=== PATIENT | female | born 1935 | race Caucasian/White ===

== ENCOUNTER 2018-12-26 14:43 | Observation (INO) ==
[2018-12-26 16:12] LABS: Basophils # 0.1 K/mcL (0.0-0.2); Basophils % 0.4 %; Eosinophils # 0.1 K/mcL (0.0-0.6); Eosinophils % 0.7 %; Hematocrit 40.7 % (35.3-44.9); Hemoglobin 12.8 g/dL (11.5-15.4); INR 1.1; Immature Granulocytes % 1.2 % (0-4); Lymphocytes # 2.3 K/mcL (0.6-4.6); Lymphocytes % 18.3 %; Mean Corpuscular HGB Conc 31.4 g/dL (31.6-35.5); Mean Corpuscular Hemoglobin 32.2 pg (28.0-33.3); Mean Corpuscular Volume 102.3 fL (83.0-100.0); Mean Platelet Volume 10.8 fL (9.4-12.4); Monocytes # 1.1 K/mcL (0.0-1.3); Neutrophils # 8.8 K/mcL (1.6-8.9); Platelet Count 264 K/mcL (140-400); Prothrombin Time 12.9 Seconds (9.4-12.1); Red Blood Count 3.98 M/mcL (3.82-4.97); Red Cell Distribution Width 13.7 % (11.5-14.5); Segmented Neutrophils % 70.4 %
[2018-12-26 16:14] LABS: Activated Partial Thrombo Time 31.5 Seconds (26.0-36.0); Troponin I 0.05 ng/mL (< 0.04)
[2018-12-26] MEDS ORDERED: 0.9 % Sodium Chloride 250 ML IVC ONE (16:34)
[2018-12-26 16:40] LABS: Albumin 3.2 g/dL (3.5-5.7); Albumin/Globulin Ratio 0.9 (1.1-2.2); Bilirubin,Total 0.4 mg/dL (0.3-1.0); Calcium 9.1 mg/dL (8.6-10.3); Globulin 3.4 g/dL (2.4-3.5); Potassium 4.2 mEq/L (3.5-5.1); Total Protein 6.6 g/dL (6.4-8.9)
[2018-12-26 16:45] LABS: Bilirubin,Urine Small (Negative); Blood,Urine Small (Negative); Clarity,Urine Clear (Clear); Color,Urine Yellow (Yellow); Glucose,Urine (UA) Normal (Normal); Ketones,Urine Negative (Negative); Leukocyte Esterase,Urine Large (Negative); Nitrite,Urine Positive (Negative); Protein,Urine 30 mg/dL (Neg-Trace); Urobilinogen,Urine Normal (Normal)
[2018-12-26] MEDS ORDERED: 0.9 % Sodium Chloride 1,000 ML IVC SCH ×2 (16:45→19:48)
--- NOTE | 2018-12-26 16:54 | Emergency Department Note ---
Disposition Clinical Impression: Delirium due to general medical condition UTI (urinary tract infection) Qualifiers: Urinary tract infection type: site unspecified Hematuria presence: without hematuria Qualified Code(s): N39.0 - Urinary tract infection, site not specified Altered mental status Qualifiers: Altered mental status type: somnolence Qualified Code(s): R40.0 - Somnolence Disposition: Admitted As Inpatient Referrals: NONE,PCP [Primary Care Provider] - Forms: ED Satisfaction Letter Time of Disposition: 18:09 Altered Mental Status HPI - General Chief Complaint: ED Altered Mental Status Stated Complaint: possible stroke Time Seen by Provider: 12/26/18 14:53 Source: family, EMS Mode of arrival: EMS Limitations: altered mental status, age Nursing Notes Reviewed: Yes Vital Signs Reviewed: Yes - History of Present Illness HPI Narrative: Patient is an elderly diabetic with dementia cared for at home by her son who indicates that she also has chronic UTIs, bladder stones, several urologic procedures by Dr. Lenz urology, and his for the last 3 months been on Cipro for preventative chronic UTIs. Centers for her at home. He states that she does have severe dementia but usually is verbal. She over the last month and a half has been having increasing weakness and inability to walk. He needs to carry her to the bathroom and back as her legs well just "go out on her" she occasionally gets agitated and requires lorazepam. She has been "fighting" for the last week and that her own right arm. He states that she is always a bit groggy. Last lorazepam was last night. Dosing is usually 3 times a day. Patient this morning however was unusually nonverbal. He could not get her to wake up or open her eyes. She was more weak than usual. Seemed altered. And he was concerned. He also thought she may have a bit more chest and nasal congestion than usual MD complaint: altered mental status, confusion, decreased responsiveness, we akness Onset (ago): hour(s) (6) Timing confirmed by: family member, caregiver Pain Severity: unable Consistency of Symptoms: constant Context: history psychiatric disease, other (dementia) Associated symptoms: Reports: other (pt nonverbal) Treatments prior to arrival: other (none) - Related Data Home Medications Medication Instructions Recorded Confirmed FLUoxetine HCl [Prozac] 40 mg PO DAILY 10/27/15 12/26/18 Lisinopril [Zestril] 5 mg PO DAILY 10/27/15 12/26/18 Pantoprazole Sodium [Protonix] 40 mg PO DAILY 10/27/15 12/26/18 Mirtazapine [Remeron] 7.5 mg PO HS 04/25/16 12/26/18 Levothyroxine [Synthroid] 88 mcg PO 0630 06/26/17 12/26/18 hydroCHLOROthiazide 12.5 mg PO DAILY 06/26/17 12/26/18 [Hydrochlorothiazide] Insulin Glargine,Hum.rec.anlog 30 unit SQ HS 07/20/17 12/26/18 [Lantus Solostar] Aspirin [Lo-Dose Aspirin EC] 81 mg PO DAILY 08/07/17 12/26/18 Clopidogrel [Plavix] 75 mg PO DAILY 08/07/17 12/26/18 predniSONE [PredniSONE] 3 mg PO DAILY 08/07/17 12/26/18 Ciprofloxacin HCl [Cipro] 250 mg PO DAILY 12/26/18 12/26/18 Dulaglutide [Trulicity] 1.5 mg SQ QWEEK 12/26/18 12/26/18 Gabapentin [Neurontin] 300 mg PO TID 12/26/18 12/26/18 rOPINIRole [Requip] 0.5 mg PO HS 12/26/18 12/26/18 Allergies Allergy/AdvReac Type Severity Reaction Status Date / Time No Known Allergies Allergy Verified 08/18/17 21:21 Limitations: ROS unobtainable due to patients medical condition Past Medical History - Past Medical History Medical history: Reports: CHF, CVA, dementia, diabetes, GERD, hyperlipidemia, hypertension, kidney stones, RA, thyroid disease, other Surgical history: Reports: cataract, cholecystectomy Psychiatric history: Reports: no psych history [employer]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 Skin color is pale. Appears well h ydrated, body habitus elderly and frail appears chronically ill Non toxic appearing. Head: Normocephalic and atraumatic. External ear exam normal Nose: Nose normal. Mouth/Throat: Uvula is midline, oropharynx is clear and moist and mucous membranes are normal. Eyes: Conjunctivae nl, extraocular motions and lids are normal. Pupils are equal, round, and reactive to light. Neck: Normal range of motion and phonation normal. Neck supple. No JVD Cardiovascular: Normal rate, regular rhythm, normal heart sounds. Pulmonary/Chest: No Respiratory distress. Respiratory Effort normal and breath sounds clear. Abdominal: Soft. Normal appearance and bowel sounds are normal. no tenderness, no masses, no guarding, no rebound External genitals without obvious rash, bleeding, or any signs of trauma. No discharge Musculoskeletal: Good distal pulses. Soft compartments. Brisk cap refill. Extremities: Difficult to assess motor function is the patient is nonverbal and will not open her eyes or cooperate with motor exam..Intact peripheral pulses. No Edema. Extremity skin color nl, no calf tenderness or palpable cords. Neurological: GCS 8. Patient is nonverbal. Skin: Skin is warm, dry and intact. color is normal, cap refill is quick Psychiatric: Patient nonverbal - General Limitations: no limitations General appearance: alert, in no apparent distress Course - Reevaluation(s) Reevaluation #1: Patient had urine straight cathetered for specimen and specimen was very cloudy. Possible UTI. Cultures and lactate ordered and antibiotics and IV fluids Time: 16:39 Reevaluation #2: I discussed the patient's care and testing results radiology imaging with the son who is the xerox machine mechanic. I do believe she has the altered mental status as a result of her urinary tract infection. She will need further antibiotics. But he is concerned because she has not had anything to eat or drink all day and she has been sleeping and not able to take by mouth that he will not be able to manage her at home. I did have rectal temp done and she is not febrile when we tried to have her take by mouth however she was unable to, swallow much of the time. She will be unable to take even oral fluids as an outpatient and therefore will require hospitalization. Her son is in agreement. He indicates that her CODE STATUS is DNR CC Time: 18:04 Reevaluation #3: Call back from Dr. Buckley electronic assembler group leader for hospitalist. He agreed that she can be admitted here and requested that I put in orders as a courtesy. We discussed antibiotic choice and he would like to continue with the Rocephin daily. He asked me to put her on heparin 5000 units twice a day subcutaneous and IV fluids were also discussed. Time: 18:28 Vital Signs Temperature 98.3 F 12/26/18 14:54 Pulse Rate 91 12/26/18 14:54 Respiratory Rate 14 12/26/18 14:54 Blood Pressure 118/75 12/26/18 14:54 O2 Sat by Pulse Oximetry 100 12/26/18 14:54 Temperature 99.1 F 12/26/18 16:57 Pulse Rate 83 12/26/18 17:52 Respiratory Rate 14 12/26/18 17:52 Blood Pressure 130/62 12/26/18 17:52 O2 Sat by Pulse Oximetry 98 12/26/18 17:52 Oxygen Delivery Oxygen Delivery Nasal Cannula Altered Mental Status - Differential Diagnosis Likely: altered mental status, delirium, dementia, hypoglycemia, hyponatremia, psychiatric disease, subarachnoid hemorrhage - Medical Records Medical records reviewed: Yes I reviewed the patient's medical records. - Lab Data Lab results reviewed: Yes I reviewed the patient's lab results. Result diagrams: 12/26/18 15:43 12/26/18 16:05 Lab Results 12/26/18 12/26/18 12/26/18 Range/Units 15:43 15:43 15:43 WBC 12.5 H (4.3-11.1) K/mcL RBC 3.98 (3.82-4.97) M/mcL Hgb 12.8 (11.5-15.4) g/dL Hct 40.7 (35.3-44.9) % MCV 102.3 H (83.0-100.0) fL MCH 32.2 (28.0-33.3) pg MCHC 31.4 L (31.6-35.5) g/dL RDW 13.7 (11.5-14.5) % Plt Count 264 (140-400) K/mcL MPV 10.8 (9.4-12.4) fL Immature Gran % 1.2 (0-4) % Seg Neutrophils % 70.4 % Lymphocytes % 18.3 % Monocytes % 9.0 % Eosinophils % 0.7 % Basophils % 0.4 % Neutrophils # 8.8 (1.6-8.9) K/mcL Lymphocytes # 2.3 (0.6-4.6) K/mcL Monocytes # 1.1 (0.0-1.3) K/mcL Eosinophils # 0.1 (0.0-0.6) K/mcL Basophils # 0.1 (0.0-0.2) K/mcL PT 12.9 H (9.4-12.1) Seconds INR 1.1 APTT 31.5 (26.0-36.0) Seconds VBG pH (7.32-7.42) pH Units VBG pCO2 (41-51) mmHg VBG pO2 (25-50) mmHg VBG HCO3 (21-27) mEq/L Sodium (136-145) mEq/L Potassium (3.5-5.1) mEq/L Chloride (98-107) mEq/L Carbon Dioxide (23-29) mEq/L BUN (8-23) mg/dL Creatinine (0.60-1.20) mg/dL Est GFR ( Amer) (> 60) Est GFR (Non-Af Amer) (> 60) BUN/Creatinine Ratio (6-26) Glucose (70-105) mg/dL Calculated Osmolality (280-300) Lactic Acid 1.4 (0.5-2.2) mmol/L Calcium (8.6-10.3) mg/dL Total Bilirubin (0.3-1.0) mg/dL AST (13-39) Units/L ALT (7-52) Units/L Alkaline Phosphatase (34-104) Units/L Creatine Kinase (30-223) Units/L Troponin I (< 0.04) ng/mL Serum Total Protein (6.4-8.9) g/dL Albumin (3.5-5.7) g/dL Globulin (2.4-3.5) g/dL Albumin/Globulin Ratio (1.1-2.2) Serum , Qual (Negative) Urine Color (Yellow) Urine Clarity (Clear) Urine pH (5.0-8.0) pH Units Ur Specific Olive (1.010-1.025) Urine Protein (Neg-Trace) mg/dL Urine Glucose (UA) (Normal) mg/dL Urine Ketones (Negative) mg/dL Urine Blood (Negative) Urine Nitrite (Negative) Urine Bilirubin (Negative) Urine Urobilinogen (Normal) mg/dL Ur Leukocyte Esterase (Negative) Urine Microscopic RBC (0-3) per hpf Urine Microscopic WBC (0-3) per hpf Ur Squamous Epith Cells (None-Few) per lpf Urine Bacteria (None-Few) per hpf 12/26/18 12/26/18 12/26/18 Range/Units 15:43 15:43 16:05 WBC (4.3-11.1) K/mcL RBC (3.82-4.97) M/mcL Hgb (11.5-15.4) g/dL Hct (35.3-44.9) % MCV (83.0-100.0) fL MCH (28.0-33.3) pg MCHC (31.6-35.5) g/dL RDW (11.5-14.5) % Plt Count (140-400) K/mcL MPV (9.4-12.4) fL Immature Gran % (0-4) % Seg Neutrophils % % Lymphocytes % % Monocytes % % Eosinophils % % Basophils % % Neutrophils # (1.6-8.9) K/mcL Lymphocytes # (0.6-4.6) K/mcL Monocytes # (0.0-1.3) K/mcL Eosinophils # (0.0-0.6) K/mcL Basophils # (0.0-0.2) K/mcL PT (9.4-12.1) Seconds INR APTT (26.0-36.0) Seconds VBG pH (7.32-7.42) pH Units VBG pCO2 (41-51) mmHg VBG pO2 (25-50) mmHg VBG HCO3 (21-27) mEq/L Sodium 144 (136-145) mEq/L Potassium 4.2 (3.5-5.1) mEq/L Chloride 111 H (98-107) mEq/L Carbon Dioxide 24 (23-29) mEq/L BUN 47 H (8-23) mg/dL Creatinine 2.07 H (0.60-1.20) mg/dL Est GFR ( Amer) 28 L (> 60) Est GFR (Non-Af Amer) 23 L (> 60) BUN/Creatinine Ratio 23 (6-26) Glucose 225 H (70-105) mg/dL Calculated Osmolality 317 H (280-300) Lactic Acid (0.5-2.2) mmol/L Calcium 9.1 (8.6-10.3) mg/dL Total Bilirubin 0.4 (0.3-1.0) mg/dL AST 24 (13-39) Units/L ALT 15 (7-52) Units/L Alkaline Phosphatase 120 H (34-104) Units/L Creatine Kinase 709 H (30-223) Units/L Troponin I 0.05 H* (< 0.04) ng/mL Serum Total Protein 6.6 (6.4-8.9) g/dL Albumin 3.2 L (3.5-5.7) g/dL Globulin 3.4 (2.4-3.5) g/dL Albumin/Globulin Ratio 0.9 L (1.1-2.2) Serum , Qual Negative (Negative) Urine Color (Yellow) Urine Clarity (Clear) Urine pH (5.0-8.0) pH Units Ur Specific Olive (1.010-1.025) Urine Protein (Neg-Trace) mg/dL Urine Glucose (UA) (Normal) mg/dL Urine Ketones (Negative) mg/dL Urine Blood (Negative) Urine Nitrite (Negative) Urine Bilirubin (Negative) Urine Urobilinogen (Normal) mg/dL Ur Leukocyte Esterase (Negative) Urine Microscopic RBC (0-3) per hpf Urine Microscopic WBC (0-3) per hpf Ur Squamous Epith Cells (None-Few) per lpf Urine Bacteria (None-Few) per hpf 12/26/18 12/26/18 Range/Units 16:40 17:10 WBC (4.3-11.1) K/mcL RBC (3.82-4.97) M/mcL Hgb (11.5-15.4) g/dL Hct (35.3-44.9) % MCV (83.0-100.0) fL MCH (28.0-33.3) pg MCHC (31.6-35.5) g/dL RDW (11.5-14.5) % Plt Count (140-400) K/mcL MPV (9.4-12.4) fL Immature Gran % (0-4) % Seg Neutrophils % % Lymphocytes % % Monocytes % % Eosinophils % % Basophils % % Neutrophils # (1.6-8.9) K/mcL Lymphocytes # (0.6-4.6) K/mcL Monocytes # (0.0-1.3) K/mcL Eosinophils # (0.0-0.6) K/mcL Basophils # (0.0-0.2) K/mcL PT (9.4-12.1) Seconds INR APTT (26.0-36.0) Seconds VBG pH 7.38 (7.32-7.42) pH Units VBG pCO2 39 L (41-51) mmHg VBG pO2 51 H (25-50) mmHg VBG HCO3 23 (21-27) mEq/L Sodium (136-145) mEq/L Potassium (3.5-5.1) mEq/L Chloride (98-107) mEq/L Carbon Dioxide (23-29) mEq/L BUN (8-23) mg/dL Creatinine (0.60-1.20) mg/dL Est GFR ( Amer) (> 60) Est GFR (Non-Af Amer) (> 60) BUN/Creatinine Ratio (6-26) Glucose (70-105) mg/dL Calculated Osmolality (280-300) Lactic Acid (0.5-2.2) mmol/L Calcium (8.6-10.3) mg/dL Total Bilirubin (0.3-1.0) mg/dL AST (13-39) Units/L ALT (7-52) Units/L Alkaline Phosphatase (34-104) Units/L Creatine Kinase (30-223) Units/L Troponin I (< 0.04) ng/mL Serum Total Protein (6.4-8.9) g/dL Albumin (3.5-5.7) g/dL Globulin (2.4-3.5) g/dL Albumin/Globulin Ratio (1.1-2.2) Serum , Qual (Negative) Urine Color Yellow (Yellow) Urine Clarity Clear (Clear) Urine pH 5.0 (5.0-8.0) pH Units Ur Specific Olive 1.020 (1.010-1.025) Urine Protein 30 H (Neg-Trace) mg/dL Urine Glucose (UA) Normal (Normal) mg/dL Urine Ketones Negative (Negative) mg/dL Urine Blood Small H (Negative) Urine Nitrite Positive A (Negative) Urine Bilirubin Small H (Negative) Urine Urobilinogen Normal (Normal) mg/dL Ur Leukocyte Esterase Large H (Negative) Urine Microscopic RBC 3-5 H (0-3) per hpf Urine Microscopic WBC 30-50 H (0-3) per hpf Ur Squamous Epith Cells Few (None-Few) per lpf Urine Bacteria Moderate H (None-Few) per hpf - Radiology Data Radiology results reviewed: Yes I reviewed the patient's radiology results. CT brain stable exam. No acute intercranial abnormality Portable chest x-ray impression from radiology. No acute process TPA Checklist - LKW: 3-4.5 hrs Add. Warnings/Precautions Patient/family understanding: The patient/family members have been counseled and understood the risk, benefit, and alternatives of treatment.
[2018-12-26 17:13] LABS: VBG HCO3 23 mEq/L (21-27); VBG PCO2 39 mmHg (41-51); VBG PH 7.38 pH Units (7.32-7.42); VBG PO2 51 mmHg (25-50)
[2018-12-26 17:31] LABS: Bacteria,Urine Moderate per hpf (None-Few); Squamous Epithelial Cell,Urine Few per lpf (None-Few); WBC,Urine 30-50 per hpf (0-3)
[2018-12-26] MEDS ORDERED: Naloxone 0.4 MG/ML INJ IVP PRN (19:48)
[2018-12-26] MEDS ORDERED: Insulin DETEMIR 100 UNIT/ML per UNIT SQ ONE (21:00)
[2018-12-26 21:17] LABS: Basophils # 0.1 K/mcL (0.0-0.2); Basophils % 0.5 %; Eosinophils # 0.2 K/mcL (0.0-0.6); Eosinophils % 1.4 %; Hemoglobin 12.5 g/dL (11.5-15.4); Immature Granulocytes % 1.2 % (0-4); Lymphocytes # 2.1 K/mcL (0.6-4.6); Lymphocytes % 18.4 %; Mean Corpuscular HGB Conc 31.3 g/dL (31.6-35.5); Mean Corpuscular Hemoglobin 32.1 pg (28.0-33.3); Mean Corpuscular Volume 102.6 fL (83.0-100.0); Monocytes # 1.1 K/mcL (0.0-1.3); Monocytes % 9.5 %; Neutrophils # 7.7 K/mcL (1.6-8.9); Platelet Count 243 K/mcL (140-400); Red Cell Distribution Width 13.4 % (11.5-14.5)
[2018-12-26] MEDS ORDERED: *HR* Dextrose 50 % in Water (Syg) 50 ML SYRINGE IVP PRN (21:27)
[2018-12-26] MEDS ORDERED: D5% in Water 1,000 ML IVC PRN (21:27)
[2018-12-26] MEDS ORDERED: Dextrose Gel 15 GM/37.5 ML TUBE PO PRN ×2 (21:27)
[2018-12-26] MEDS: 0.9 % Sodium Chloride 1,000 ML IVC SCH (22:41)
[2018-12-26] MEDS: MethylPREDNISolone 40 MG/ML VIAL IVP SCH (22:45)
[2018-12-26] MEDS: *HR* Heparin 5,000 UNIT/ML VIAL SQ SCH (22:47)
[2018-12-27 06:06] LABS: Albumin 2.7 g/dL (3.5-5.7); Albumin/Globulin Ratio 0.9 (1.1-2.2); Bilirubin,Total 0.3 mg/dL (0.3-1.0); Calcium 8.2 mg/dL (8.6-10.3); Magnesium 1.8 mg/dL (1.6-2.6); Potassium 4.4 mEq/L (3.5-5.1); Total Protein 5.7 g/dL (6.4-8.9)
[2018-12-27] MEDS: MethylPREDNISolone 40 MG/ML VIAL IVP SCH ×2 (07:35→15:12)
[2018-12-27] MEDS: *HR* Heparin 5,000 UNIT/ML VIAL SQ SCH ×2 (07:41→22:03)
[2018-12-27] MEDS: cefTRIAXone 1,000 MG in Water for inj. (sterile) 20 ML 10 ML IVP SCH (07:41)
[2018-12-27] MEDS: Aspirin Enteric Coated 81 MG Tablet PO SCH (07:42)
[2018-12-27] MEDS: Insulin LISPRO 300 UNITS/3 ML VIAL SQ SCH ×3 (07:50→15:15)
[2018-12-27] MEDS: 0.9 % Sodium Chloride 1,000 ML IVC SCH (07:59)
[2018-12-27] MEDS ORDERED: predniSONE 1 MG TABLET PO SCH (09:00)
--- NOTE | 2018-12-27 11:06 | Internal Med History&Physical ---
Addendum entered and electronically signed by Francisco Monteiro MD 12/27/18 16:16: I have personally performed a face to face evaluation on this patient. I have r eviewed and agree with the care plan. History and Exam by me shows: History is unobtainable from patient because of her mental status. History was obtained from nursing, emergency room physician, and son and [id number] who are caretakers. The patient has 2 days of decreased oral intake, decreased appetite, decreased responsiveness. In the emergency room, she was found to have signs of deh ydration and was admitted with a presumptive UTI. The patient has multiple bladder stones and UTIs, in the past. Medications were reviewed with the patien's son. He states that they use Ativan 2 or 3 times daily as needed. This was given at 1 mg per dose because of agitation at home. Nursing notes and adequate responsiveness and so they requested that we consult speech therapy. Speech is unable to see her until tomorrow. We will keep her nothing by mouth on IV because of concern about aspiration risk. We will give her medication terms of IV Ativan for agitation and she is more alert now. ROS is not obtainable because of patient's status. Son confirms that the patient is DNR comfort care. Examination: (Except as mentioned above): General: In no apparent distress, somnolent, and not verbally responsive. Later in the day, she is responsive with gibberish which the son says is normal for her for the last year. Head: Atraumatic and normocephalic. Eyes: Extraocular muscles are intact, pupils equal round and reactive to light and accommodation. Sclerae anicteric. Ears: External ears are normal to inspection and hearing is grossly normal. Nose: Patent without lesion noted. Mouth: No intraoral lesions seen. Dentition is unremarkable. Neck: Supple with trachea midline. There is no thyromegaly or adenopathy and carotids are 2+ without bruit heard. Respiratory: No use of accessory muscles. Lungs are clear throughout. Normal airflow. Cardiovascular: Regular rate and rhythm without murmur appreciated. Abdomen: Bowel sounds are normal. No hepatosplenomegaly masses or tenderness. Obese and therefore difficult to palpate deeply. Extremities: No cyanosis clubbing or edema. Neurological: A and O 3. Cranial nerves II through XII are intact. No focal deficits and no abnormal movements or postures. Skin: Warm and non-diaphoretic with no lesions noted. Breasts, pelvic and rectal: Not examined. Because of her low TSH, we will hold her thyroxine for now. I crossed this off her home list for her son and he will review this with her nurse practitioner in about a week. I said we should start her back on a lower dose, at some point thereafter. Because of the patient's elevated MCV, I asked the son if she has an alcoholism history. There was minimal alcohol intake, 20 or 25 years ago but no recent use. We will obtain vitamin B12 and folate levels. Because of her elevating sodium, I have switched her IV from saline to half- normal at a low maintenance level after 2 L of rapid rehydration. It will be 3 days before her culture results returned but she has been appear clear treated with IV antibiotics. When we are sure that she can take oral, this will be changed to an oral antibiotic. Original Note: Date of Encounter: 12/27/18 Time of Encounter: 11:00 Assessment and Plan (1) Altered mental status Current visit: Yes Status: Acute Patient presented to emergency department with family complaints of decreased LOC over the past 2 days. Patient's had a steady decline in health over the past several months, requiring total care at home per her son. During her diagnostic workup in emergency department she was discovered to have a UTI and to be clinically dry. Son states that patient has become increasingly lethargic and has refused any oral intake over the past 2 days. Patient with history of progressing dementia with episodes of agitation and combativeness. Patient currently remains very lethargic but can be awakened with physical stimulus. She continues on Rocephin and fluids resuscitation. We will continue to monitor closely. We will continue with serial labs. Qualifiers: Altered mental status type: somnolence Qualified Code(s): R40.0 - Somnolence (2) UTI (urinary tract infection) Current visit: Yes Status: Acute He was admitted with a UTI. Started on Rocephin. Currently is afebrile. Son states patient has a history of chronic UTIs and has remained on daily Cipro per her urologist. We will continue with current plan of care Qualifiers: Urinary tract infection type: site unspecified Hematuria presence: without hematuria Qualified Code(s): N39.0 - Urinary tract infection, site not specified (3) CKD (chronic kidney disease) stage 3, GFR 30-59 ml/min Current visit: Yes Status: Chronic Patient continues with fluid resuscitation. Patient presented with a creatinine of 2.07 and BUNs of 47. Continues with gentle rehydration per IV fluids and today's creatinine was 1.75. We will continue with current plan of care and monitor with serial labs. (4) CHF (congestive heart failure) Current visit: Yes Status: Chronic No acute issues. We will continue monitor closely due to patient receiving fluid resuscitation. Currently lungsscattered fine rales. We will continue to monitor closely. Qualifiers: Heart failure type: unspecified Heart failure chronicity: unspecified Qualified Code(s): I50.9 - Heart failure, unspecified Internal Medicine - H&P: HPI Chief complaint: Altered mental status Admitted From: Home Plans for Post Hospital Care: Home History of present illness: Ms. Singh is a 83 year old female, who presented to emergency department last evening from home. He should has been and care of her son, who states that he has noticed a change in her level of consciousness over the last several days. Patient's son states that patient has had a steady decline in health over the past several months which has included progressing dementia and increased weakness. Patient has been total care for the past several weeks, but over the last several days her weakness has increased to wear he must not carry her to the restroom and that she has been now wheelchair-bound. Patient has had increasing dementia which has included episodes of agitation during which time, according to the son she will become combative and will bite both her critical care unit manager and herself. She has been treated with Ativan when necessary at home. The son states that over the past 2 days he has noticed that she has been more lethargic and has been unable to take any oral intake. Son states that she has a history of CHF, several CVAs, DM, hypertension, RA, and dementia. Son states the patient has had a long history of chronic UTIs remains on daily Cipro per her urologist. Patient was evaluated in the emergency department and was found to have a UTI. Agents labs reviewed which shows patient to be clinically dry. Chest x-ray and CT of the head were both negative. He was started on fluid resuscitation and Rocephin and admitted onto the medical floor. Patient can be awakened with physical stimulus, but does not track with eyes or follow any commands. Son states that she has been nonverbal for several weeks. Past Med Surg Social Fam HX - Past Medical History Medical history: CHF, CVA, dementia, diabetes, GERD, hyperlipidemia, hypertension, kidney stones, RA, thyroid disease, other Additional medical history: NIDDM, anxiety,depression,subacute left basil ganglia infarct,mild confusion and resting right sided tremors,dermatomyositis,retinal tear r eye, achalasia,ruptured cervical disc, US gall stones/sludge, osteoarthritis,hx of DVT,. [place] Psychiatric history: no psych history - Past Surgical History Surgical History: cataract, cholecystectomy Additional surgical history: SURGERY FOR KIDNEY STONES X 3, RT KIDNEY STENT - Social History Smoking Status: Never smoker Smokeless Tobacco Status: No Alcohol use: none Drug use: none Internal Medicine - H&P: Meds FLUoxetine HCl [Prozac] 40 mg PO DAILY 10/27/15 [History] Lisinopril [Zestril] 5 mg PO DAILY 10/27/15 [History] Pantoprazole Sodium [Protonix] 40 mg PO DAILY 10/27/15 [History] Mirtazapine [Remeron] 7.5 mg PO HS 04/25/16 [History] Levothyroxine [Synthroid] [place] [address]/26/17 [History] hydroCHLOROthiazide [Hydrochlorothiazide] 12.5 mg PO DAILY 06/26/17 [History] Insulin Glargine,Hum.rec.anlog [Lantus Solostar] 30 unit SQ HS 07/20/17 [History] Aspirin [Lo-Dose Aspirin EC] 81 mg PO DAILY 08/07/17 [History] Clopidogrel [Plavix] 75 mg PO DAILY 08/07/17 [History] predniSONE [PredniSONE] 3 mg PO DAILY 08/07/17 [History] Ciprofloxacin HCl [Cipro] 250 mg PO DAILY 12/26/18 [History] Dulaglutide [Trulicity] 1.5 mg SQ QWEEK 12/26/18 [History] Gabapentin [Neurontin] 300 mg PO TID 12/26/18 [History] rOPINIRole [Requip] 0.5 mg PO HS 12/26/18 [History] Allergy/AdvReac Type Severity Reaction Status Date / Time No Known Allergies Allergy Verified 08/18/17 21:21 All Systems PM: A 10-system review of systems was performed and is negative for pertinent findings except as documented above in the HPI. - Constitutional Constitutional: as per HPI, no chills, no fever(s), no night sweats - EENT Eyes: as per HPI, no change in vision, no discharge, no pain, no photophobia Ears: as per HPI, no ear discharge, no ear pain, no tinnitus Nose, mouth and throat: as per HPI, no dysphagia, no nasal discharge, no neck pain, no sore throat - Cardiovascular Cardiovascular ROS IM: as per HPI, no chest pain, no diaphoresis, no dyspnea, no lightheadedness, no palpitations, no syncope - Respiratory Respiratory: as per HPI, no cough, no dyspnea, no wheezing, no excessive phlegm production - Gastrointestinal Gastrointestinal: as per HPI, no abdominal pain, no diarrhea, no hematemesis, no hematochezia, no melena, no nausea, no vomiting - Genitourinary Genitourinary: as per HPI, no change in urinary stream, no dysuria, no flank pain, no hematuria - Musculoskeletal Musculoskeletal ROS IM: as per HPI, no numbness, no tingling - Integumentary Integumentary IM: as per HPI, no rash, no unusual bruising - Neurological Neurological ROS: as per HPI, no confusion, no convulsions, no focal weakness, no numbness, no tingling, no tremor(s) - Hematologic/Lymphatic Hematologic/Lymphatic: no easy bruising - Constitutional Vitals: Temp Pulse Resp BP Pulse Ox 97.5 F L 80 14 112/64 91 12/27/18 07:48 12/27/18 07:48 12/27/18 07:48 12/27/18 07:48 12/27/18 07:48 Exam: Appears lethargic but can be awakened with physical stimulus. Patient opens eyes but does not track. Patient follows no commands. Nonverbal. - Head Head exam: Present: atraumatic, normocephalic - Eye Eye exam: Present: PERRL, conjuntiva pink, sclera anicteric Pupils: Present: PERRL - Neck Neck exam general surgery: Present: supple, trachea midline. Absent: lymphadenopathy - Respiratory Respiratory exam: Present: CTAB. Absent: accessory muscle use, rales, rhonchi, wheezes Additional comments: Lungs are clear throughout upper fills with scattered fine rales posteriorly. Respiratory effort appears relaxed. No productive cough noted. - Cardiovascular Cardiovascular exam: Present: RRR, +S1, +S2. Absent: diastolic murmur, gallop, rubs, systolic murmur - GI/Abdominal GI/Abdominal exam: Present: normal bowel sounds, soft, no peritoneal signs. Absent: distended, tenderness - Extremities Exam Extremities exam: Present: warm, radial pulses palpable and symmetrical. Absent: calf tenderness, cyanotic, pedal edema Additional comments: Multiple healing bruises noted to bilateral forearms. - Neurological Exam Neurological exam: Present: no focal deficits. Absent: facial droop, speech deficit Additional comments: Patient remains lethargic but can be awakened with physical stimulus. Patient follows no commands and remains nonverbal. No tracking noted with eyes, although PERRLA. No spontaneous movement of extremities noted but sluggish localization to pain. - Psychiatric Psychiatric exam: Present: flat affect - Skin Skin exam: Present: dry, intact Internal Med - H&P Results - Labs CBC & Chem 7: 12/26/18 21:15 12/27/18 05:40 Labs: Short CBC 12/26/18 12/26/18 Range/Units 15:43 21:15 WBC 12.5 H 11.2 H (4.3-11.1) K/mcL Hgb 12.8 12.5 (11.5-15.4) g/dL Hct 40.7 40.0 (35.3-44.9) % Plt Count 264 243 (140-400) K/mcL Neutrophils # 8.8 7.7 (1.6-8.9) K/mcL BMP 12/26/18 12/27/18 16:05 05:40 Sodium 144 146 H Potassium 4.2 4.4 Chloride 111 H 115 H Carbon Dioxide 24 23 BUN 47 H 46 H Creatinine 2.07 H 1.75 H Glucose 225 H 230 H Calcium 9.1 8.2 L Cardiac Enzymes 12/26/18 Range/Units 15:43 Troponin I 0.05 H* (< 0.04) ng/mL Liver Function 12/26/18 12/27/18 Range/Units 16:05 05:40 Total Bilirubin 0.4 0.3 (0.3-1.0) mg/dL AST 24 22 (13-39) Units/L ALT 15 15 (7-52) Units/L Alkaline Phosphatase 120 H 111 H (34-104) Units/L Albumin 3.2 L 2.7 L (3.5-5.7) g/dL Urine 12/26/18 Range/Units 16:40 Urine Color Yellow (Yellow) Urine Clarity Clear (Clear) Urine pH 5.0 (5.0-8.0) pH Units Ur Specific [place] 1.020 (1.010-1.025) Urine Protein 30 H (Neg-Trace) mg/dL Urine Glucose (UA) Normal (Normal) mg/dL - ABG Interpretation ABG results: 12/26/18 17:10 VBG pH 7.38 VBG pCO2 39 L VBG pO2 51 H VBG HCO3 23 - Impressions ITS Impressions Chest X-Ray 12/26/18 14:54 IMPRESSION: No acute process. D/ / Livan Thompson MD / Livan Thompson MD Interpreting Provider: Livan Thompson MD Head CT 12/26/18 14:54 IMPRESSION: Stable exam. No acute intracranial abnormality. D/ / 12/26/2018 15:34:30 Jen Weinstein MD / ceferino Interpreting Provider: Jen Weinstein MD
[2018-12-27] MEDS ORDERED: *HR* LORazepam 2 MG/ML VIAL IVP PRN (14:46)
[2018-12-27] MEDS ORDERED: Insulin LISPRO 300 UNITS/3 ML VIAL SQ SCH (21:00)
[2018-12-27] MEDS ORDERED: Insulin DETEMIR 100 UNIT/ML X5UNITS SQ SCH (21:00)
--- NOTE | 2018-12-27 21:00 | Electrocardiograph Report ---
[address] [place] [address] Test Date: 2018-12-26 Pat Name: Sridevi Singh Department: [facility] Room: 111 Gender: F Teacher: : 1935 Requested By: Zara Coleman Order Number: [id number] Reading MD: Corinne Myrick Measurements Intervals [place] Rate: 87 P: 121 MO: 173 QRS: -138 QRSD: 133 T: 128 QT: 407 QTc: 490 Interpretive Statements Sinus rhythm IVCD, consider atypical RBBB Abnormal T, consider ischemia, lateral leads Electronically Signed On 12-27-2018 20:59:10 EST by Corinne Myrick
[2018-12-28] MEDS: MethylPREDNISolone 40 MG/ML VIAL IVP SCH ×2 (00:46→10:59)
[2018-12-28 06:12] VITALS: BP 149/80
[2018-12-28] MEDS: Insulin LISPRO 300 UNITS/3 ML VIAL SQ SCH ×2 (10:29→12:33)
[2018-12-28] MEDS: Aspirin Enteric Coated 81 MG Tablet PO SCH (10:29)
[2018-12-28] MEDS: cefTRIAXone 1,000 MG in Water for inj. (sterile) 20 ML 10 ML IVP SCH (10:56)
[2018-12-28] MEDS: *HR* Heparin 5,000 UNIT/ML VIAL SQ SCH (11:00)
--- NOTE | 2018-12-28 13:13 | Discharge Summary ---
Addendum entered and electronically signed by Francisco Monteiro MD 12/28/18 13:45: I have personally performed a face to face evaluation on this patient. I have r eviewed and agree with the care plan. History and Exam by me shows: Patient is much brighter today. Per her son, she is back to her baseline. She is smiling, interactive, talkative but not sequential in her responses. She does follow commands and is able to take breaths, etc. Discussed care with other providers and/or nursing. Patient has no complaint of chest discomfort, dyspnea, orthopnea, palpitations, nausea or vomiting, constipation or diarrhea, other changes in bowel habits, difficulty with urination, rash or itching, or other new complaints, except as mentioned above. Review of systems is otherwise negative. Examination: (Except as mentioned above): General: In no apparent distress. Alert but disoriented.. Nondiaphoretic. Head: Atraumatic and normocephalic. Respiratory: No use of accessory muscles. Lungs are clear throughout. Normal airflow. Cardiovascular: Regular rate and rhythm without murmur appreciated. Abdomen: Bowel sounds are normal. No hepatosplenomegaly mass or tenderness appreciated. Extremities: No cyanosis clubbing or edema. Skin: Warm and non-diaphoretic with no new lesions noted. Because patient is active baseline, we will continue on oral cephalosporin, resume Cipro as before and have her follow with urologist as scheduled for Monday at 10 AM. She has been seen by speech therapy who said it was acceptable to resume a mechanical soft diet. She will be discharged to home, today. I spoke with son who feels patient is doing well and is ready to take her home. His questions about discharge plans were answered. Because of her care needs, a hospital bed has been prescribed at home. Original Note: Orders not resulted at time of discharge: Pending orders 12/26/18 16:55 Culture,Blood [BC] Stat 12/27/18 19:00 Folate RBC Routine Date of Encounter: 12/28/18 Time of Encounter: 13:11 - Discharge Diagnosis (1) Altered mental status Priority: Primary Status: Acute Comments: Improving. Patient has history of CVA and dementia. Patient is a phasic and difficult to obtain HPI. Son at bedside. States doing much better. Qualifiers: Altered mental status type: somnolence Qualified Code(s): R40.0 - Somnolence (2) UTI (urinary tract infection) Priority: Primary Status: Acute Comments: Continue Cefdinir 300 mg twice a day for 7 days and Cipro. Follow up with PCP. and has urology appt on 12/31/18. Qualifiers: Urinary tract infection type: site unspecified Hematuria presence: without hematuria Qualified Code(s): N39.0 - Urinary tract infection, site not specified (3) CHF (congestive heart failure) Priority: Secondary Status: Chronic Comments: Controlled. Continue current medication. Follow up with PCP. Qualifiers: Heart failure type: unspecified Heart failure chronicity: unspecified Qualified Code(s): I50.9 - Heart failure, unspecified (4) CKD (chronic kidney disease) stage 3, GFR 30-59 ml/min Priority: Secondary Status: Chronic Comments: Controlled. Continue current medication. Follow up with PCP. Hospital course: Ms. Singh is a 83 year old female discharging to home with son and [id number], who have been taking care of her since her stroke. Son states she is doing much better. Patient is a poor historian due to dementia and aphasia. Vitals are stable, maintaining appetite and hydration. Will continue cefdinir 300 mg twice a day for 7 days and current Cipro order. Scheduled to follow up with urology on to\11. Will order home health care nurse and aid. Will require hospital bed for assistance to make frequent and immediate changes body positions that is not feasible with ordinary bed. Patient has history of CVA in requires total assistance. Patient needs to be able to adjust height requirements to perform transfers, grooming and ADLs. son states pt back baseline. Discharge discussed with: patient, family, nurse, social work - Time Spent with Patient Total time spent providing and/or coordinating discharge services: Less than 30 minutes - Discharge Medications Home Medications: FLUoxetine HCl [Prozac] 40 mg PO DAILY 10/27/15 [History] Lisinopril [Zestril] 5 mg PO DAILY 10/27/15 [History] Pantoprazole Sodium [Protonix] 40 mg PO DAILY 10/27/15 [History] Mirtazapine [Remeron] 7.5 mg PO HS 04/25/16 [History] Levothyroxine [Synthroid] 88 mcg PO 0630 06/26/17 [History] hydroCHLOROthiazide [Hydrochlorothiazide] 12.5 mg PO DAILY 06/26/17 [History] Insulin Glargine,Hum.rec.anlog [Lantus Solostar] 30 unit SQ HS 07/20/17 [History] Aspirin [Lo-Dose Aspirin EC] 81 mg PO DAILY 08/07/17 [History] Clopidogrel [Plavix] 75 mg PO DAILY 08/07/17 [History] predniSONE [PredniSONE] 3 mg PO DAILY 08/07/17 [History] Ciprofloxacin HCl [Cipro] 250 mg PO DAILY 12/26/18 [History] Dulaglutide [Trulicity] 1.5 mg SQ QWEEK 12/26/18 [History] Gabapentin [Neurontin] 300 mg PO TID 12/26/18 [History] rOPINIRole [Requip] 0.5 mg PO HS 12/26/18 [History] Allergies/Adverse Reactions: Allergy/AdvReac Type Severity Reaction Status Date / Time No Known Allergies Allergy Verified 08/18/17 21:21 Date of admission: 12/26/18 18:47 Primary care physician: PCP NONE Consults: 12/27/18 11:43 Consult to Speech Therapy [CONS] Routine Comment: Evaluate, develop and implement POC Reason for Consult: AMS Call Completed: Yes Discharging clinician: Francisco Monteiro Anticipated date of discharge: 12/28/18 - Constitutional Vitals: Temp Pulse Resp BP Pulse Ox 98.1 F 57 16 149/80 90 12/28/18 06:11 12/28/18 06:11 12/28/18 06:11 12/28/18 06:11 12/28/18 06:11 General appearance: Present: cooperative, pleasant, no acute distress Exam: aphasic - Head Head exam: Present: atraumatic, normocephalic - Eye Eye exam: Present: PERRL, conjuntiva pink, sclera anicteric Pupils: Present: PERRL - Neck Neck exam general surgery: Present: supple, trachea midline. Absent: lymphadenopathy - Respiratory Respiratory exam: Present: CTAB. Absent: accessory muscle use, rales, rhonchi, wheezes - Cardiovascular Cardiovascular exam: Present: RRR, +S1, +S2. Absent: diastolic murmur, gallop, rubs, systolic murmur - GI/Abdominal GI/Abdominal exam: Present: normal bowel sounds, soft, no peritoneal signs. Absent: distended, tenderness - Extremities Exam Extremities exam: Present: warm, radial pulses palpable and symmetrical. Absent: calf tenderness, cyanotic, pedal edema - Neurological Exam Neurological exam: Present: CN II-XII intact, oriented X3, no focal deficits. Absent: pronater drift, facial droop, speech deficit - Skin Skin exam: Present: dry, intact - Patient Status Disposition: Home Health Service Condition: Fair Functional capacity at discharge: wheelchair bound Overall status at discharge: patient is progressing back to baseline - Discharge Instructions Follow Up With: NONE,PCP [Primary Care Provider] - - Diet and Activity Diet: advance to your usual diet
[2018-12-31 01:49] LABS: Hematocrit RBC Folate 34.6 %
--- NOTE | 2018-12-31 11:04 | Physician Discharge Referral ---
Addendum entered and electronically signed by Francisco Monteiro MD 12/31/18 12:58: Original Note: Home Health/Hosp Referral Info Transfer to: Home Health Provider in Charge Post Discharge: PCP - Diagnosis (1) Altered mental status Priority: Primary Status: Acute (2) UTI (urinary tract infection) Priority: Primary Status: Acute (3) CHF (congestive heart failure) Priority: Secondary Status: Chronic (4) CKD (chronic kidney disease) stage 3, GFR 30-59 ml/min Priority: Secondary Status: Chronic - Respiratory Orders Smoking Cessation: Smoking cessation has been advised. For more information, call the [place] Tobacco Quit Line at 4-782-IZLO-NOW. - Diet/Nutrition Diet/Nutrition Orders: Mechanical Soft - Activity Activity Orders: Chair - Services Needed Following services are medically necessary services: Nursing, Home Health Aide - Transfer Medications Home Medications: FLUoxetine HCl [Prozac] 40 mg PO DAILY 10/27/15 [History] Lisinopril [Zestril] 5 mg PO DAILY 10/27/15 [History] Pantoprazole Sodium [Protonix] 40 mg PO DAILY 10/27/15 [History] Mirtazapine [Remeron] 7.5 mg PO HS 04/25/16 [History] Levothyroxine [Synthroid] 88 mcg PO 30 06/26/17 [History] hydroCHLOROthiazide [Hydrochlorothiazide] 12.5 mg PO DAILY 06/26/17 [History] Insulin Glargine,Hum.rec.anlog [Lantus Solostar] 30 unit SQ HS 07/20/17 [History] Aspirin [Lo-Dose Aspirin EC] 81 mg PO DAILY 08/07/17 [History] Clopidogrel [Plavix] 75 mg PO DAILY 08/07/17 [History] predniSONE [PredniSONE] 3 mg PO DAILY 08/07/17 [History] Ciprofloxacin HCl [Cipro] 250 mg PO DAILY 12/26/18 [History] Dulaglutide [Trulicity] 1.5 mg SQ QWEEK 12/26/18 [History] Gabapentin [Neurontin] 300 mg PO TID 12/26/18 [History] rOPINIRole [Requip] 0.5 mg PO HS 12/26/18 [History] Allergies/Adverse Reactions: Allergy/AdvReac Type Severity Reaction Status Date / Time No Known Allergies Allergy Verified 08/18/17 21:21 Certification: Further, I certify that my clinical findings support that this patient is homebound (i.e. absences from home require considerable and taxing effort and are for medical reasons or [employer] services or infrequently or short duration when for other reasons) because: Homebound Reason: Patient requires assistance of a person or device to safely leave home, Leaving home requires considerable and taxing effort due to c ondition Attestation: My signature below is to certify that this patient is under my care and that I, or nurse practitioner, or a physician's advertising assistant manager working with me, has a [id number] encounter with this patient.
== END 2018-12-28 16:15 | disposition home health service (06) ==
LOC: EMEROOGRE 14:43 → INPGRE 14:43